=== PATIENT | male | born 1955 | race Caucasian/White ===

== ENCOUNTER 2022-11-21 09:05 | Outpatient (CLI) | payer MEDICARE, BC | END 2022-11-21 23:59 | disposition home or self-care (01) | LOC: CARD DIAG 09:05 | PROVIDERS: ATTEND Internal Medicine Cardiovascular Disease | DX: I34.81 Nonrheumatic mitral (valve) annulus calcification (principal); R00.2 Palpitations | CPT/HCPCS: 93306 ==